=== PATIENT | male | born 1970 | race Caucasian/White ===

== ENCOUNTER 2016-06-13 14:52 | Emergency (ER) | payer OTHER ==
[2016-06-13 15:42] VITALS: BP 170/104; PULSE 68; RESP 16; TEMP 97.7; O2SAT 95
--- NOTE | 2016-06-13 16:01 | UCPHY ---
H & P Time Seen by Provider: 06/13/16 15:43 Patient Type: New HPI/ROS: CHIEF COMPLAINT: Right shoulder and right rib injury HISTORY OF PRESENT ILLNESS: 45-year-old male arrives via private vehicle stating that yesterday when he was getting off of the chair lift at [place] he fell onto his right side , specifically, impacted his right shoulder and his right elbow impacted his right ribs. Complaining of reproducible pain to the right shoulder and his right ribs. Shoulder pain reproducible with external rotation and abduction. Rib injury reproducible with palpation and deep inspiration. No dyspnea. No head injury. No neck pain injury. No back pain or injury. Review of systems: 10 point review of systems otherwise negative Past medical history: No anticoagulant use Social history: Nonsmoker PHYSICAL EXAM 1) GENERAL: Well-developed, well-nourished, alert and oriented. Appears to be in no acute distress. Answering questions appropriately. 2) HEAD: Normocephalic, atraumatic 3) HEENT: Pupils equal, round, reactive to light bilaterally. Negative Horners. Nasopharynx, oropharynx, clear. No deformity or angulation of nose. No septal hematoma. No rhinorrhea. No oral trauma. No raccoon eyes. No [place] sign. 4) NECK: . Posterior cervical spine is nontender, no stepoff, no effusion. Full range of motion which does not elicit any midline cervical spine pain, no posterior midline tenderness, no step-off. 5) LUNGS: Clear to auscultation bilaterally, no wheezes, no rhonchi, no retractions. Tender to palpation mid axillary line approximately 7th rib on the right side. No visible signs of trauma. No obvious signs of trauma. No chest wall pain. No flaring, no grunting. Moving symmetrically. No crepitus. 6) HEART: Regular rate and rhythm, 7) ABDOMEN: No guarding, no rebound, no focal tenderness, no peritoneal signs, no signs of trauma, no ecchymosis 8) MUSCULOSKELETAL: Right shoulder: Tender to palpation anterolateral aspect of shoulder reproducible exacerbated with range of motion. No step-off. Normal anatomic landmarks. Distal radial ulnar median nerve function intact. Distal pulses are brisk. Otherwise, Moving all extremities, no focal areas of tenderness, no obvious trauma. 9) BACK: No midline vertebral tenderness, no fluctuance, no step-off, no obvious trauma, no visual or palpable abnormality. 10) SKIN: No laceration. No abrasion DIFFERENTIAL DIAGNOSIS: in no particular include but limited to fracture, dislocation, pneumothorax Smoking Status: Never smoked Constitutional: Initial Vital Signs Temperature (C) 36.5 C 06/13/16 15:36 Heart Rate 68 06/13/16 15:36 Respiratory Rate 16 06/13/16 15:36 Blood Pressure 170/104 H 06/13/16 15:36 O2 Sat (%) 95 06/13/16 15:36 O2 Delivery Mode Room Air Allergies/Adverse Reactions: acetaminophen [From Percocet] Allergy (Severe, Verified 06/13/16 15:42) oxycodone HCl [From Percocet] Allergy (Severe, Verified 06/13/16 15:42) Penicillins Allergy (Intermediate, Verified 06/13/16 15:42) Home Medications: Medication Instructions Recorded Denn[place] Allergy 06/13/16 Hydrocodone/APAP 5/325 [[place] 1 tab PO Q6 PRN #7 tab 06/13/16 5/325 (RX)] MDM/Departure - MDM Diagnostics: Right shoulder - 3 views Indication: Pain. Fall. Comparison: None Findings: The bones are anatomically aligned. No fracture or joint space abnormality. The coracoclavicular and acromioclavicular intervals are normal. Right lung apex is clear. No pneumothorax. Impression: Normal. No fracture or AC separation. Dictated By: Salty Cobb MD Right rib series - 4 views Indication: Right-sided pain. Fall. Technique: PA view and 3 oblique views of the right hemithorax. Findings: The lungs are well aerated and clear. No pneumothorax, atelectasis or effusion. Heart size normal. No rib fractures. Impression: Normal. No rib fracture or pneumothorax. Dictated By: Salty Cobb MD Images reviewed by myself Procedures: Given incentive spirometer and usage instructions Procedure: Splint a sling was applied by ER spring manufacturing set up technician. After application of the splint I returned and re-examined the patient. The splint was adequately immobilizing the joint and distal to the splint the patient's circulation and sensation were intact. Patient shows no signs of compartment syndrome. Was given orthopedic precautions. ED Course/Re-evaluation: Re-evaluation with serial examinations. Breathing comfortably. No signs of respiratory distress. he states that he is able to tolerate Vicodin without adverse or allergic reaction. - Depart Disposition: Home, Routine, Self-Care Clinical Impression: Rib pain on right side Skiing accident Qualifiers: Encounter type: initial encounter Qualifier Code: (V00.328A) Other snow-ski accident, initial encounter Right shoulder strain Qualifiers: Encounter type: initial encounter Qualifier Code: (S46.911A) Strain of unspecified muscle, fascia and tendon at shoulder and upper arm level, right arm , initial encounter Instructions: Rib Contusion (ED), Shoulder Sprain (ED) Additional Instructions: Return to the ER immediately if you experience discoloration, have worsening pain, numbness, tingling, or any other symptoms that concern you. If you received x-rays in the emergency department today, be advised, that ligamentous , tendon, muscular, and other non-bony injury cannot be fully ruled out. Try to keep your affected extremity elevated above the level of your chest, and keep cold packs on the affected area, for the next 48 hours. Prescriptions: Hydrocodone/APAP 5/325 [[place] 5/325 (RX)] 1 tab PO Q6 PRN #7 tab PRN Reason: Pain, Severe Referrals: Al Ceja MD [Medical Doctor] - 5-7 days, call for appt. (Dr. Al Ceja is orthopedic surgeon) - PQRS PQRS Measurement: Not applicable
--- NOTE | 2016-06-13 16:14 | DX ---
Right shoulder - 3 views Indication: Pain. Fall. Comparison: None Findings: The bones are anatomically aligned. No fracture or joint space abnormality. The coracoclavi cular and acromioclavicular intervals are normal. Right lung apex is clear. No pneumothorax. Impression: Normal. No fracture or AC separation.
--- NOTE | 2016-06-13 16:19 | DX ---
Right rib series - 4 views Indication: Right-sided pain. Fall. Technique: PA view and 3 oblique views of the right hemithorax. Findings: The lungs are well aerated and clear. No pneumothorax, atelectasis or effusion. Heart size normal. No rib fractures. Impression: Normal. No rib fracture or pneumothorax.
== END 2016-06-13 16:28 | disposition home or self-care (01) ==
LOC: CED 14:52
DX: S46.911A Strain of unspecified muscle, fascia and tendon at shoulder and upper arm level, right arm, initial encounter (principal); S20.211A Contusion of right front wall of thorax, initial encounter; W17.89XA Other fall from one level to another, initial encounter
CPT/HCPCS: 71101-PO; 73030-PO; 99203-PO; G0463-PO